=== PATIENT | male | born 1980 | race Caucasian/White ===

== ENCOUNTER 2021-09-25 20:17 | Observation (INO) ==
[2021-09-25] MEDS ORDERED: Ondansetron ODT 4 mg TAB 4 MG TAB PO ONE (20:35)
[2021-09-25 22:45] LABS: ABS Eosinophils 0.1 10^3/ul (0-0.6); ABS Lymphocytes 0.7 10^3/ul (1.0-4.8); ABS Monocytes 0.4 10^3/ul (0-0.8); ABS Neutrophils 5.1 10^3/ul (1.5-7.7); Eosinophil % 1.1 %; Hematocrit 38 % (42-52); Hemoglobin 13.4 g/dL (14.0-18.0); Lymphocyte % 11.8 %; Mean Corpuscular HGB Conc 35 g/dL (31-36); Mean Corpuscular Hemoglobin 31 pg (27-31); Mean Corpuscular Volume 87 fL (80-94); Mean Platelet Volume 8.2 fL (7.4-10.4); Platelet Count 206 10^3/uL (150-450); Red Blood Count 4.33 10^6 /uL (4.18-5.48); Red Cell Distribution Width 13 % (10-15); White Blood Count 6.3 10^3/uL (3.5-10.8)
[2021-09-25 23:07] LABS: High Sens Troponin Baseline 4 pg/mL (<20)
[2021-09-25 23:18] LABS: ALT 354 U/L (7-52); AST 161 U/L (13-39); Acetaminophen < 15 mcg/mL; Albumin 4.1 g/dL (3.2-5.2); Albumin/Globulin Ratio 1.7 (1-3); Alcohol, S < 13 mg/dL (<13); Alkaline Phosphatase 119 U/L (35-149); Blood Urea Nitrogen 11 mg/dL (6-24); CO2 Carbon Dioxide 25 mmol/L (22-32); Calcium 8.4 mg/dL (8.6-10.3); Chloride 83 mmol/L (101-111); Globulin 2.4 g/dL (2-4); Glucose 152 mg/dL (70-100); Magnesium 1.6 mg/dL (1.9-2.7); Potassium 3.9 mmol/L (3.5-5.0); Total Protein 6.5 g/dL (6.4-8.9)
[2021-09-25 23:19] LABS: Anion Gap 8 mmol/L (2-11); Sodium 116 mmol/L (135-145)
[2021-09-25] MEDS ORDERED: Magnesium Sulfate IV 1GM/100ML 1 GM/100 ML BAG IV ONE (23:23)
[2021-09-25] MEDS ORDERED: NS 0.9% 1000 ml BAG 1,000 ML IV ONE (23:24)
[2021-09-25 23:32] LABS: TSH Ultra Thyroid Stim Horm 1.11 mcIU/mL (0.34-5.60)
[2021-09-26 00:28] LABS: High Sensitivity Troponin 1 Hr 5 pg/mL (<20)
[2021-09-26 00:51] LABS: Urine Osmo 327 mOsm/kg (150-1150)
[2021-09-26 00:52] LABS: Urine Chloride Concentration < 22 mmol/L; Urine Potassium Concentration 32.2 mmol/L; Urine Sodium Concentration < 18 mmol/L
[2021-09-26 01:13] LABS: Urine Benzodiazepine Screen None Detected (None Detect); Urine Cannabinoids Screen None Detected (None Detect); Urine Opiates Screen None Detected (None Detect)
[2021-09-26 01:28] LABS: Urine Appearance Clear; Urine Bilirubin Negative (Negative); Urine Blood Negative (Negative); Urine Color Amber; Urine Glucose 1+(50 mg/dL) (Negative); Urine Ketones Negative (Negative); Urine Nitrite Negative (Negative); Urine Protein Negative (Negative); Urine Specific Gravity 1.011 (1.002-1.030); Urine Urobilinogen Negative (Negative)
[2021-09-26 02:30] LABS: Osmolality Serum 249 mOsm/kg (275-295)
[2021-09-26] MEDS ORDERED: NS 0.9% 1000 ml BAG 1,000 ML IV SCH (03:00)
[2021-09-26 03:34] LABS: INR 1.4 (0.86-1.15)
[2021-09-26 03:42] LABS: eGFR CKD-EPI 135.6 (>60)
[2021-09-26 03:43] LABS: Urine Osmo < 100 mOsm/kg (150-1150)
[2021-09-26 04:10] LABS: Hepatitis B Surface Antigen Nonreactive (Nonreactive)
[2021-09-26 04:16] LABS: Hepatitis A Ab IgM Negative (Negative)
[2021-09-26 06:32] LABS: ABS Eosinophils 0.1 10^3/ul (0-0.6); ABS Lymphocytes 0.7 10^3/ul (1.0-4.8); ABS Monocytes 0.4 10^3/ul (0-0.8); ABS Neutrophils 5.6 10^3/ul (1.5-7.7); Eosinophil % 0.9 %; Hematocrit 38 % (42-52); Hemoglobin 13.7 g/dL (14.0-18.0); Lymphocyte % 10.3 %; Mean Corpuscular HGB Conc 36 g/dL (31-36); Mean Corpuscular Hemoglobin 31 pg (27-31); Mean Corpuscular Volume 86 fL (80-94); Mean Platelet Volume 8.5 fL (7.4-10.4); Nucleated Red Blood Cells % 0.1; Platelet Count 205 10^3/uL (150-450); Red Blood Count 4.42 10^6 /uL (4.18-5.48); Red Cell Distribution Width 13 % (10-15); White Blood Count 6.8 10^3/uL (3.5-10.8)
[2021-09-26 08:52] LABS: CO2 Carbon Dioxide 26 mmol/L (22-32); Chloride 96 mmol/L (101-111); Sodium 125 mmol/L (135-145)
[2021-09-26 08:53] LABS: ALT 304 U/L (7-52); Albumin 3.9 g/dL (3.2-5.2); Albumin/Globulin Ratio 1.6 (1-3); Alkaline Phosphatase 123 U/L (35-149); Anion Gap 3 mmol/L (2-11); Blood Urea Nitrogen 11 mg/dL (6-24); Calcium 8.5 mg/dL (8.6-10.3); Cholesterol 154 mg/dL; Globulin 2.5 g/dL (2-4); Glucose 123 mg/dL (70-100); HDL Cholesterol 46.4 mg/dL; Indirect Bilirubin 1.5 mg/dL (0.3-1.0); LDL Cholesterol 86 mg/dL; Total Protein 6.4 g/dL (6.4-8.9); Triglycerides 106 mg/dL; eGFR CKD-EPI 131.5 (>60)
[2021-09-26 12:05] LABS: Hepatitis B Core IgM Nonreactive (Nonreactive)
[2021-09-26 12:17] LABS: Hepatitis C Antibody Negative (Negative)
[2021-09-26 17:38] LABS: Calcium 8.5 mg/dL (8.6-10.3); Potassium 4.4 mmol/L (3.5-5.0); eGFR CKD-EPI 130.7 (>60)
[2021-09-26 17:39] LABS: Direct Bilirubin Redraw 0.3 mg/dL (0.03-0.18); Potassium Redraw 4.4 mmol/L (3.5-5.0)
[2021-09-27 08:59] LABS: ABS Eosinophils 0.1 10^3/ul (0-0.6); ABS Lymphocytes 1.2 10^3/ul (1.0-4.8); ABS Monocytes 0.4 10^3/ul (0-0.8); ABS Neutrophils 2.9 10^3/ul (1.5-7.7); Eosinophil % 1.7 %; Hematocrit 41 % (42-52); Hemoglobin 14.1 g/dL (14.0-18.0); Mean Corpuscular HGB Conc 34 g/dL (31-36); Mean Corpuscular Hemoglobin 30 pg (27-31); Mean Corpuscular Volume 88 fL (80-94); Mean Platelet Volume 8.5 fL (7.4-10.4); Nucleated Red Blood Cells % 0.1; Platelet Count 216 10^3/uL (150-450); Red Blood Count 4.67 10^6 /uL (4.18-5.48); Red Cell Distribution Width 13 % (10-15); White Blood Count 4.6 10^3/uL (3.5-10.8)
[2021-09-27 09:34] LABS: Albumin 3.9 g/dL (3.2-5.2); Albumin/Globulin Ratio 1.4 (1-3); Calcium 9.1 mg/dL (8.6-10.3); Globulin 2.7 g/dL (2-4); Potassium 4.6 mmol/L (3.5-5.0); Total Bilirubin 1.1 mg/dL (0.2-1.0); Total Protein 6.6 g/dL (6.4-8.9); eGFR CKD-EPI 123.5 (>60)
[2021-09-27 10:16] LABS: C Reactive Protein 2.7 mg/L (<8.01); Direct Bilirubin 0.3 mg/dL (0.03-0.18); Indirect Bilirubin 0.8 mg/dL (0.3-1.0)
[2021-09-27 11:20] VITALS: BP 109/64
[2021-09-27 12:56] LABS: RBC Parasite Smear No Parasites Seen (No Parasite)
[2021-09-28 23:24] LABS: Anaplasma phagocytophilum Negative (Negative); B. miyamotoi PCR, B Negative (Negative); Babesia divergens/MO-1 Negative (Negative); Babesia ducani Negative (Negative); Ehrlichia chaffeensis Negative (Negative); Ehrlichia ewingii/canis Negative (Negative); Ehrlichia muris eauclairensis Negative (Negative)
== END 2021-09-27 15:00 | disposition home or self-care (01) ==
LOC: EDHOLD 20:17 → ED 20:17 → MERGE 09-26 01:58 → SUATTDRO 09-26 01:58 → EDHOLD 09-26 14:57 → MED 09-26 15:51
PROVIDERS: ADMIT Internal Medicine; ATTEND Internal Medicine